=== PATIENT | female | born 1955 | race Caucasian/White ===

== ENCOUNTER 2017-03-27 08:31 | Emergency (ER) | payer OTHER ==
[~2017-03-27 08:31] MED LIST: FLEXERIL PO; KEFLEX PO; MUCINEX FAST-M1 EAC2 PO; MULTI VITAMIN1 EACH PO; UNITHROID175 MCG PO; VICODIN PO
== END 2017-03-27 09:12 | disposition home or self-care (01) ==
LOC: SED 08:31
DX: S81.832A Puncture wound without foreign body, left lower leg, initial encounter (principal); Z23 Encounter for immunization; W27.8XXA Contact with other nonpowered hand tool, initial encounter; Y92.009 Unspecified place in unspecified non-institutional (private) residence as the place of occurrence of the external cause
CPT/HCPCS: 90471; 90715; 99283